=== PATIENT | female | born 1995 | race Caucasian/White ===

== ENCOUNTER 2017-04-24 20:43 | Emergency (ER) | payer MEDICAID ==
[~2017-04-24] VITALS: Ht 157.5 cm; Wt 65.8 kg
[2017-04-24 20:53] VITALS: BP 141/75
--- NOTE | 2017-04-24 21:37 | PHYS DOC ---
Past Medical History Past Medical History: Other Additional Past Medical Histor: ANXIETY INDUCED SYNCOPE/STRESS INDUCED SEIZURES -TAKES NO MEDS Past Surgical History: No Surgical History Alcohol Use: Occasionally Drug Use: Marijuana Adult General Chief Complaint Chief Complaint: HEADACHE HPI HPI 21-year-old female with a past medical history of anxiety and panic attacks more frequently than once a month since childhood. Patient states that often with these anxiety attacks she hyperventilates and loses consciousness. An attack typical for her at which time she lost consciousness fell and hit her head. At that time but couldn't is concerned that she had headaches since. He denies neck pain or injury. She reports some mild blurry vision intermittently and persistent intermittent headaches as well. No nausea or vomiting. No difficult speech coordination or gait. Patient is alert and interactive and functional but is concerned about her persistent symptoms she came to the emergency department for evaluation. Review of Systems Review of Systems Constitutional: Denies fever or chills [] Eyes: Denies change in visual acuity, redness, or eye pain [] HENT: Denies nasal congestion or sore throat [] Respiratory: Denies cough or shortness of breath [] Cardiovascular: No additional information not addressed in HPI [] GI: Denies abdominal pain, nausea, vomiting, bloody stools or diarrhea [] : Denies dysuria or hematuria [] Musculoskeletal: Denies back pain or joint pain [] Integument: Denies rash or skin lesions [] Neurologic: Denies headache, focal weakness or sensory changes [] Endocrine: Denies polyuria or polydipsia [] Allergies Allergies Allergies Coded Allergies Type Severity Reaction Last Updated Verified No Known Drug Allergies 04/24/17 No Physical Exam Physical Exam Appearing 21-year-old female distress nonfocal neurologic exam. Normal smoke atraumatic. Normal TMs bilateral. No Gallego sign. Nontender C-spine with normal painless range of motion. Constitutional: Well developed, well nourished, no acute distress, non-toxic appearance. [] HENT: Normocephalic, atraumatic, bilateral external ears normal, oropharynx moist, no oral exudates, nose normal. [] Eyes: PERRLA, EOMI, conjunctiva normal, no discharge. [] Neck: Normal range of motion, no tenderness, supple, no stridor. [] Cardiovascular:Heart rate regular rhythm, no murmur [] Lungs & Thorax: Bilateral breath sounds clear to auscultation [] Abdomen: Bowel sounds normal, soft, no tenderness, no masses, no pulsatile masses. [] Skin: Warm, dry, no erythema, no rash. [] Back: No tenderness, no CVA tenderness. [] Extremities: No tenderness, no cyanosis, no clubbing, ROM intact, no edema. [] Neurologic: Alert and oriented X 3, normal motor function, normal sensory function, no focal deficits noted. [] Psychologic: Affect normal, judgement normal, mood normal. [] Current Patient Data Vital Signs Vital Signs Date Time Temp Pulse Resp B/P (MAP) Pulse Ox O2 Delivery O2 Flow Rate FiO2 04/24/17 20:53 98.8 102 22 98 Room Air 98.8 EKG EKG [] Radiology/Procedures Radiology/Procedures CT of the head unremarkable interpreted by me report reviewed [] Course & Med Decision Making Course & Med Decision Making Symptoms consistent with mild postconcussive syndrome in a patient that had a spontaneous loss of consciousness by history secondary to hyperventilation over a week ago. She is well-appearing with unremarkable vitals and completely benign exam. CT of the head pending to rule out less likely possibility of intracranial injury or bleed. Unremarkable patient agrees with outpatient follow -up and further workup and treatment the indicated at this time and strict return precautions will be given. Pertinent Labs and Imaging studies reviewed. (See chart for details) [] Dragon Disclaimer Dragon Disclaimer This electronic medical record was generated, in whole or in part, using a voice recognition dictation system. Departure Departure Impression: Primary Impression: Headache Additional Impressions: Postconcussive syndrome Hyperventilation-induced syncope Severe anxiety with panic Disposition: 01 HOME, SELF-CARE Condition: GOOD Referrals: NO PCP (PCP) Patient Instructions: Head Injury, Adult, Hyperventilation Additional Instructions: Description it appears that you had a loss of consciousness over a week because of hyperventilation associated with an anxiety attack. Follow-up with your doctor to discuss whether anxiety control with a benzodiazepine such as Xanax would be appropriate for you. If you do start to have panic and anxiety and breathe fast make a conscious effort to calm yourself including breathing in into a paper bag if necessary. She her head when he fell over a week ago here persistent mild headaches and mild dizziness may be a result of a postconcussive syndrome. This should improve with time, that is to say it typically does. Her CAT scan showed no fracture bleeding or abnormality inside your brain. Follow-up with a primary care doctor for reevaluation and return immediately for new severe or worsening symptoms Problem Qualifiers CHU CHATTERJEE MD Apr 24, 2017 21:37
--- NOTE | 2017-04-24 22:29 | RAD ---
CT head without intravenous contrast History: Loss of consciousness, head injury 1.5 weeks ago, headaches and blurred vision since. Comparison: None. Technique: Axial images are obtained of the head from the skull base through the vertex without IV contrast. Exposure: One or more of the following individualized dose reduction techniques were utilized for this examination: 1. Automated exposure control 2. Adjustment of the mA and/or kV according to patient size 3. Use of iterative reconstruction technique Findings: The ventricles are appropriate in size, shape, and location for the patient's age. No obvious intracranial mass, mass-effect, midline shift, hemorrhage or obvious acute infarction is identified. Basilar cisterns are patent. Bone windows demonstrate no acute calvarial abnormality. The visualized paranasal sinuses appear clear. Impression: 1. No acute intracranial process. Electronically signed by: Anthony Alarcon MD (04/24/2017 10:26 PM)
== END 2017-04-24 22:32 | disposition home or self-care (01) ==
LOC: ER 20:43
DX: F07.81 Postconcussional syndrome (principal); R06.4 Hyperventilation; R55 Syncope and collapse; F41.0 Panic disorder [episodic paroxysmal anxiety]; F12.10 Cannabis abuse, uncomplicated
CPT/HCPCS: 70450; 81025; 99284-25